=== PATIENT | female | born 1965 | race Caucasian/White ===

== ENCOUNTER 2019-11-26 21:55 | Inpatient (IN) | payer MEDICAID, OTHER ==
[~2019-11-26] VITALS: Ht 175.3 cm; Wt 95.5 kg
[2019-11-26] MEDS ORDERED: ondansetron/PF 4mg/2ml inj IV ONE (22:25)
[2019-11-26] MEDS ORDERED: morphine 4 MG/ML inj SYRINge IV ONE (22:25)
[2019-11-26] MEDS ORDERED: normal saline 1000ML IV soln IVB ONE (22:25)
[2019-11-26] MEDS ORDERED: iohexol 350MG/ML 100ml bottle IV ONE (22:27)
[2019-11-26 22:30] LABS: ALBUMIN 3.1 G/DL (3.4-5.0); ALBUMIN/GLOBULIN RATIO 0.8 (1.1-1.5); ALKALINE PHOSPHATASE 95 IU/L (46-116); ANION GAP 14 (8-16); BILIRUBIN,TOTAL 3.4 MG/DL (0.1-1.0); BLOOD UREA NITROGEN 10 MG/DL (7-18); BUN/CREATININE RATIO 11.8 (6.6-38.0); CALCIUM 6.8 MG/DL (8.5-10.1); CHLORIDE 94 MMOL/L (99-107); CREATININE 0.85 MG/DL (0.40-0.90); GLUCOSE 193 MG/DL (70-104); POTASSIUM 3.9 MMOL/L (3.5-5.1); SODIUM 126 MMOL/L (135-145); TOTAL CARBON DIOXIDE 17.6 MMOL/L (24-32); TOTAL PROTEIN 6.8 G/DL (6.4-8.2); eGFR 69 ML/MIN
[2019-11-26 22:40] LABS: BASOPHILS # (AUTO) 0.1 X10'3 (0-0.2); BASOPHILS % (AUTO) 1.1 % (0-1); EOSINOPHILS % (AUTO) 0 % (0-6); LYMPHOCYTES # (AUTO) 2.4 X10'3 (1.1-4.8); LYMPHOCYTES % (AUTO) 19.3 % (21-51); MEAN CORPUSCULAR HEMOGLOBIN 33.7 PG (27.0-31.0); MEAN CORPUSCULAR HGB CONC 34.1 g/dL (33.0-36.5); MEAN PLATELET VOLUME 8.2 FL (7.4-10.4); MONOCYTES # (AUTO) 0.5 X10'3 (0-0.9); MONOCYTES % (AUTO) 3.8 % (2-12); NEUTROPHILS # (AUTO) 9.3 X10'3 (1.8-7.7); NEUTROPHILS % (AUTO) 75.8 % (42-75); PLATELET COUNT 241 X10'3 (140-440); RED BLOOD COUNT 4.44 X10'6 (4.20-5.60); RED CELL DISTRIBUTION WIDTH 13.9 % (11.5-14.5); WHITE BLOOD COUNT 12.3 X10'3 (4.5-11.0)
[2019-11-26 22:59] LABS: ALANINE AMINOTRANSFERASE 99 U/L (12-78); ASPARTATE AMINO TRANSFERASE 230 U/L (10-37)
[2019-11-26 23:17] LABS: LIPASE 9937 U/L (73-393)
[2019-11-26] MEDS ORDERED: fentaNYL/PF 50MCG/1 ML 2ML syringe IV ONE (23:30)
[2019-11-26] MEDS ORDERED: ACET-3068 PO (23:32)
[2019-11-26] MEDS ORDERED: LISI-600 PO (23:32)
[2019-11-26] MEDS ORDERED: NORE-99 PO (23:33)
[2019-11-26] MEDS ORDERED: OMEP40CA13 PO (23:33)
[2019-11-26] MEDS ORDERED: NAS0.025NS BOTHNARES (23:34)
[2019-11-26] MEDS ORDERED: LORA10TA61 PO (23:34)
[2019-11-26 23:47] LABS: URINE HCG NEGATIVE (NEG)
[2019-11-26 23:58] LABS: CLARITY,URINE CLEAR (Clear); COLOR,URINE YELLOW (Yellow); GLUCOSE, URINE NEGATIVE (Neg); KETONES,URINE NEGATIVE (Neg); LEUKOCYTE ESTERASE ,URINE NEGATIVE (Neg); NITRITES, URINE NEGATIVE (Neg); OCCULT BLOOD,URINE TRACE-LYSED (Neg); PROTEIN,URINE NEGATIVE (Neg); UROBILINOGEN,URINE 0.2 E.U/dL (0.2-1.0)
[2019-11-27 00:07] LABS: CHOL/HDL RATIO 22.6 (0.00-4.99); CHOLESTEROL 701 MG/DL (0-200); HDL CHOLESTEROL 31 MG/DL (35-60); LDL CHOLESTEROL 145 MG/DL (50-100); TRIGLYCERIDES 3332 MG/DL (20-135)
[2019-11-27 00:08] LABS: UA COLLECTION TYPE CLN CATCH MIDSTREAM
[2019-11-27 00:21] LABS: BACTERIA,URINE FEW /HPF (Neg); MUCUS STRANDS FEW /LPF (Neg); RBC,URINE 0-2 /HPF (0-2); SQUAMOUS EPITHELIAL CELL,UR MANY /LPF (FEW); WBC,URINE 0-4 /HPF (0-4)
[2019-11-27 00:50] LABS: ETHANOL < 0.010 GM/DL (0.0-0.010)
[2019-11-27] MEDS ORDERED: normal saline 1000ml 1,000 ML IV SCH (01:12)
[2019-11-27] MEDS ORDERED: morphine 2 MG/ML inj. syringe IV PRN (01:15)
[2019-11-27] MEDS ORDERED: LORazepam 1 MG tablet PO PRN (01:15)
[2019-11-27] MEDS ORDERED: potassium Cl 20 mEq SR tablet PO PRN (01:15)
[2019-11-27] MEDS ORDERED: magnesium 2GM in 50ml NS 50 ML IV PRN (01:15)
[2019-11-27] MEDS ORDERED: magnesium 4gm in 100ml NS 100 ML IV PRN (01:15)
[2019-11-27] MEDS ORDERED: magnesium Cl slow-release 64mg tablet PO PRN (01:15)
[2019-11-27] MEDS ORDERED: potassium CL 10mEq/100ml bag 100 ML IV PRN ×2 (01:15)
[2019-11-27] MEDS ORDERED: dicyclomine 10 MG capsule PO PRN (01:15)
[2019-11-27] MEDS ORDERED: mag hydrox/Alum hydrox/simeth 30ml oral suspension PO PRN (01:15)
[2019-11-27] MEDS ORDERED: LORazepam 2 mg/ml vial IV PRN (01:15)
[2019-11-27] MEDS ORDERED: acetaminophen 325mg tablet PO PRN ×2 (01:15)
[2019-11-27] MEDS ORDERED: ondansetron/PF 4mg/2ml inj IV PRN (01:15)
[2019-11-27] MEDS: HYDROcodone/acetaminophen 10/325mg tab PO PRN ×3 (01:41→20:25)
[2019-11-27] MEDS: atenolol 50mg tablet PO SCH ×2 (01:41→08:00)
--- NOTE | 2019-11-27 01:50 | NUR ---
Received report from ER nurse will assume patient care.
[2019-11-27 02:10] VITALS: BP 114/59
--- NOTE | 2019-11-27 02:10 | NUR ---
Patient arrived to floor. VSS. Oriented patient to room. Call light in reach.
--- NOTE | 2019-11-27 06:57 | NUR ---
Patient in room NADIRA 345. I have received report from Jessika TAN and had the opportunity to ask questions and assume patient care.
[2019-11-27 07:58] VITALS: BP 112/68
[2019-11-27 08:00] VITALS: BP 112/68
[2019-11-27] MEDS: K and/or MAG REPLACEMENT MC SCH ×2 (08:00→19:51)
[2019-11-27] MEDS: loratadine 10mg tablet PO SCH (08:08)
[2019-11-27] MEDS: pantoprazole 40 MG vial IV SCH (08:09)
[2019-11-27] MEDS: lisinopril 10 MG tablet PO SCH (08:09)
[2019-11-27] MEDS: heparin, porcine 5000 units/ml vial SQ SCH ×2 (08:10→20:26)
[2019-11-27] MEDS ORDERED: fenofibrate 145mg tablet PO SCH (09:45)
[2019-11-27 11:00] VITALS: BP 125/46
[2019-11-27] MEDS: dextrose 5%-normal saline 1,000 ML IV SCH ×2 (11:34→20:26)
[2019-11-27] MEDS: atorvastatin 20mg tablet PO SCH (11:38)
[2019-11-27] MEDS: morphine 2 MG/ML inj. syringe IV PRN (11:38)
[2019-11-27] MEDS: fenofibrate 145mg tablet PO SCH (11:53)
[2019-11-27] MEDS: omega-3 acid ethyl esters 1GM capsule PO SCH ×2 (11:55→20:25)
[2019-11-27 19:43] VITALS: BP 118/40
[2019-11-27] MEDS ORDERED: temazepam 15mg capsule PO PRN (21:00)
[2019-11-27 23:40] VITALS: BP 104/51
[2019-11-28 05:04] LABS: BASOPHILS % (AUTO) 0.3 % (0-1); EOSINOPHILS # (AUTO) 0.1 X10'3 (0-0.9); EOSINOPHILS % (AUTO) 0.6 % (0-6); HEMATOCRIT 34.1 % (35.0-45.0); HEMOGLOBIN 11.5 g/dl (12.0-16.0); LYMPHOCYTES # (AUTO) 1.3 X10'3 (1.1-4.8); LYMPHOCYTES % (AUTO) 14.7 % (21-51); MEAN CORPUSCULAR HEMOGLOBIN 33.3 PG (27.0-31.0); MEAN CORPUSCULAR HGB CONC 33.9 g/dL (33.0-36.5); MEAN CORPUSCULAR VOLUME 98.3 FL (78-98); MEAN PLATELET VOLUME 8.3 FL (7.4-10.4); MONOCYTES # (AUTO) 0.6 X10'3 (0-0.9); MONOCYTES % (AUTO) 6.1 % (2-12); NEUTROPHILS # (AUTO) 7.1 X10'3 (1.8-7.7); NEUTROPHILS % (AUTO) 78.3 % (42-75); PLATELET COUNT 133 X10'3 (140-440); RED BLOOD COUNT 3.46 X10'6 (4.20-5.60); RED CELL DISTRIBUTION WIDTH 13.7 % (11.5-14.5)
[2019-11-28 05:21] LABS: ALANINE AMINOTRANSFERASE 49 U/L (12-78); ALBUMIN 2.4 G/DL (3.4-5.0); ALBUMIN/GLOBULIN RATIO 0.8 (1.1-1.5); ALKALINE PHOSPHATASE 59 IU/L (46-116); ANION GAP 8 (8-16); ASPARTATE AMINO TRANSFERASE 84 U/L (10-37); BILIRUBIN,TOTAL 1.1 MG/DL (0.1-1.0); BLOOD UREA NITROGEN 7 MG/DL (7-18); BUN/CREATININE RATIO 10.3 (6.6-38.0); CALCIUM 6.8 MG/DL (8.5-10.1); CHLORIDE 105 MMOL/L (99-107); CREATININE 0.68 MG/DL (0.40-0.90); GLUCOSE 130 MG/DL (70-104); MAGNESIUM 1.5 MG/DL (1.5-2.4); SODIUM 137 MMOL/L (135-145); TOTAL CARBON DIOXIDE 24.3 MMOL/L (24-32); TOTAL PROTEIN 5.4 G/DL (6.4-8.2); eGFR 90 ML/MIN
[2019-11-28 05:22] LABS: LIPASE 1977 U/L (73-393)
[2019-11-28] MEDS: morphine 2 MG/ML inj. syringe IV PRN ×3 (05:24→20:55)
--- NOTE | 2019-11-28 06:45 | NUR ---
Problems reprioritized. Patient report given, questions answered & plan of care reviewed with Smitha RN.
[2019-11-28 07:00] VITALS: BP 117/60
[2019-11-28] MEDS: atenolol 50mg tablet PO SCH (08:00)
[2019-11-28] MEDS: K and/or MAG REPLACEMENT MC SCH ×2 (08:00→20:00)
[2019-11-28] MEDS: fenofibrate 145mg tablet PO SCH (08:24)
[2019-11-28] MEDS: atorvastatin 20mg tablet PO SCH (08:24)
[2019-11-28] MEDS: omega-3 acid ethyl esters 1GM capsule PO SCH ×2 (08:25→20:44)
[2019-11-28] MEDS: pantoprazole 40 MG vial IV SCH (08:25)
[2019-11-28] MEDS: lisinopril 10 MG tablet PO SCH (08:25)
[2019-11-28] MEDS: loratadine 10mg tablet PO SCH (08:25)
[2019-11-28] MEDS: heparin, porcine 5000 units/ml vial SQ SCH ×2 (08:26→20:44)
[2019-11-28] MEDS: potassium Cl 20 mEq SR tablet PO PRN ×3 (10:25→20:45)
[2019-11-28 11:00] VITALS: BP 108/56
[2019-11-28] MEDS: HYDROcodone/acetaminophen 10/325mg tab PO PRN ×2 (13:16→17:37)
[2019-11-28] MEDS: dextrose 5%-normal saline 1,000 ML IV SCH (17:37)
--- NOTE | 2019-11-28 19:03 | NUR ---
Problems reprioritized. Patient report given, questions answered & plan of care reviewed with DOMINICK Renteria.
[2019-11-28 20:00] VITALS: BP 105/56
--- NOTE | 2019-11-28 21:45 | NUR ---
Received report from Dexter TAN. Pt was sitting up in bed talking on the phone with no signs of distress. D5NS running at 75 mls/hr. Will continue to monitor.
[2019-11-29 00:29] VITALS: BP 105/46
[2019-11-29] MEDS: dextrose 5%-normal saline 1,000 ML IV SCH ×2 (01:50→07:49)
[2019-11-29] MEDS: morphine 2 MG/ML inj. syringe IV PRN (03:00)
[2019-11-29 04:48] LABS: BASOPHILS # (AUTO) 0.2 X10'3 (0-0.2); BASOPHILS % (AUTO) 1.9 % (0-1); EOSINOPHILS # (AUTO) 0.1 X10'3 (0-0.9); EOSINOPHILS % (AUTO) 0.8 % (0-6); HEMATOCRIT 33.7 % (35.0-45.0); HEMOGLOBIN 11.4 g/dl (12.0-16.0); LYMPHOCYTES # (AUTO) 1.1 X10'3 (1.1-4.8); LYMPHOCYTES % (AUTO) 13.4 % (21-51); MEAN CORPUSCULAR HEMOGLOBIN 33.8 PG (27.0-31.0); MEAN CORPUSCULAR HGB CONC 33.9 g/dL (33.0-36.5); MEAN CORPUSCULAR VOLUME 99.5 FL (78-98); MEAN PLATELET VOLUME 8.2 FL (7.4-10.4); MONOCYTES # (AUTO) 0.6 X10'3 (0-0.9); MONOCYTES % (AUTO) 7.7 % (2-12); NEUTROPHILS # (AUTO) 6.3 X10'3 (1.8-7.7); NEUTROPHILS % (AUTO) 76.2 % (42-75); PLATELET COUNT 126 X10'3 (140-440); RED BLOOD COUNT 3.39 X10'6 (4.20-5.60); WHITE BLOOD COUNT 8.2 X10'3 (4.5-11.0)
[2019-11-29 05:04] LABS: ALANINE AMINOTRANSFERASE 43 U/L (12-78); ALBUMIN 2.4 G/DL (3.4-5.0); ALBUMIN/GLOBULIN RATIO 0.7 (1.1-1.5); ALKALINE PHOSPHATASE 67 IU/L (46-116); ANION GAP 7 (8-16); ASPARTATE AMINO TRANSFERASE 80 U/L (10-37); BILIRUBIN,TOTAL 1.2 MG/DL (0.1-1.0); BLOOD UREA NITROGEN 3 MG/DL (7-18); BUN/CREATININE RATIO 5.8 (6.6-38.0); CALCIUM 7.6 MG/DL (8.5-10.1); CHLORIDE 107 MMOL/L (99-107); CREATININE 0.52 MG/DL (0.40-0.90); GLUCOSE 113 MG/DL (70-104); LIPASE 1318 U/L (73-393); MAGNESIUM 1.5 MG/DL (1.5-2.4); POTASSIUM 3.5 MMOL/L (3.5-5.1); SODIUM 139 MMOL/L (135-145); TOTAL CARBON DIOXIDE 25.2 MMOL/L (24-32); TOTAL PROTEIN 5.7 G/DL (6.4-8.2); eGFR > 90 ML/MIN
--- NOTE | 2019-11-29 06:34 | NUR ---
Problems reprioritized. Patient report given, questions answered & plan of care reviewed with Brook TAN.
--- NOTE | 2019-11-29 06:48 | NUR ---
Patient in room NADIRA 345. I have received report from Batsheva TAN and had the opportunity to ask questions and assume patient care.
[2019-11-29 07:00] VITALS: BP 128/67
[2019-11-29] MEDS: omega-3 acid ethyl esters 1GM capsule PO SCH (07:51)
[2019-11-29] MEDS: fenofibrate 145mg tablet PO SCH (07:51)
[2019-11-29] MEDS: HYDROcodone/acetaminophen 5mg/325mg tablet PO PRN ×2 (07:52→12:25)
[2019-11-29] MEDS: loratadine 10mg tablet PO SCH (07:52)
[2019-11-29] MEDS: lisinopril 10 MG tablet PO SCH (07:53)
[2019-11-29] MEDS: atorvastatin 20mg tablet PO SCH (07:53)
[2019-11-29] MEDS: pantoprazole 40 MG vial IV SCH (07:54)
[2019-11-29] MEDS: K and/or MAG REPLACEMENT MC SCH (07:54)
[2019-11-29] MEDS: heparin, porcine 5000 units/ml vial SQ SCH (07:54)
[2019-11-29] MEDS: atenolol 50mg tablet PO SCH (07:58)
[2019-11-29 11:03] LABS: TRIGLYCERIDES 436 MG/DL (20-135)
[2019-11-29 12:14] VITALS: BP 137/57
--- NOTE | 2019-11-29 14:47 | NUR ---
Full Liquid diet ordered, fax to request late tray sent approx 1230, phone call to Dietary at 1300-no answer. senior network engineer notified. Phone call to kitchen at 1400 answered-to send Full liquid tray. PCT down to obtain tray at 1445.
[2019-11-29] MEDS ORDERED: OMEG1CAP PO (15:22)
[2019-11-29] MEDS ORDERED: FENO145T25 PO (15:22)
[2019-11-29] MEDS ORDERED: ATEN50TA41 PO (15:22)
[2019-11-29] MEDS ORDERED: ATOR20TA66 PO (15:22)
--- NOTE | 2019-11-29 17:38 | NUR ---
Pt stable and appropriate for discharge. PIV d/c'd cannula intact. Reviewed with patient all d/c instructions and meds. Pt to call and schedule f/u appt with PCP for 2-3 days. pt to call PCP with any questions or concerns, or return to nearest ER with worsening symptoms or s/sx of complications. Escorted down to front lobby by staff member via w/c with all personal belongings. D/C'd home in private vehicle driven by family member.
== END 2019-11-29 17:40 | disposition home or self-care (01) | DRG 282 ==
LOC: ER 21:57 → ED HOLD 11-27 01:12 → SUR 3N 11-27 02:17
PROVIDERS: ADMIT Internal Medicine; ATTEND Family Medicine
DX: K85.20 Alcohol induced acute pancreatitis without necrosis or infection (principal); E87.1 Hypo-osmolality and hyponatremia; K29.80 Duodenitis without bleeding; G89.29 Other chronic pain; E78.5 Hyperlipidemia, unspecified; E78.1 Pure hyperglyceridemia; I10 Essential (primary) hypertension; K76.0 Fatty (change of) liver, not elsewhere classified; M26.629 Arthralgia of temporomandibular joint, unspecified side; Z87.891 Personal history of nicotine dependence; Z79.899 Other long term (current) drug therapy
CPT/HCPCS: 36415; 71275; 74174; 76700; 80053; 80061; 80320; 81001; 81003; 81025; 82948; 83036; 83605; 83690; 83735; 84478; 85025; 87040; 87081; 93005; 96361; 96374; 96375; 97161; 97530; 99285; C9113; G0378; J1644; J2270; J2405; J3010; J7030; J7042; Q9967

== ENCOUNTER 2021-01-24 05:33 | Day surgery (SDC) | payer MEDICAID ==
[~2021-01-24] VITALS: Ht 175.3 cm; Wt 94.3 kg
[~2021-01-24 05:33] MED LIST: ACET-3068 PO; ALPH600C3 PO; AZEL205. BOTHNARES; CALCIUM PO; D3 PO; FENO54TA PO; LISI20TA28 PO; LORA10TA61 PO; MAGN250T11 PO; NORE-99 PO; VITA-268 PO; cefazolin/dext.iso 2gm/50ml 50 ML IV ONE; famotidine 20mg tablet PO ONE; ringers solution, lacted 1,000 ML IV SCH
[2021-01-24 06:44] LABS: BASOPHILS # (AUTO) 0.1 X10'3 (0-0.2); BASOPHILS % (AUTO) 1.1 % (0-1); EOSINOPHILS # (AUTO) 0.1 X10'3 (0-0.9); EOSINOPHILS % (AUTO) 1.7 % (0-6); LYMPHOCYTES # (AUTO) 1.8 X10'3 (1.1-4.8); LYMPHOCYTES % (AUTO) 27.6 % (21-51); MEAN CORPUSCULAR HEMOGLOBIN 32.5 PG (27.0-31.0); MEAN CORPUSCULAR HGB CONC 33.3 g/dL (33.0-36.5); MEAN CORPUSCULAR VOLUME 97.5 FL (78-98); MONOCYTES # (AUTO) 0.6 X10'3 (0-0.9); MONOCYTES % (AUTO) 9.2 % (2-12); NEUTROPHILS % (AUTO) 60.4 % (42-75); PRE OP HEMATOCRIT 39.8 % (35.0-45.0); PRE OP HEMOGLOBIN 13.3 g/dL (12.0-16.0); PRE OP PLATELET COUNT 237 X10'3 (140-440); RED BLOOD COUNT 4.08 X10'6 (4.20-5.60); RED CELL DISTRIBUTION WIDTH 12.8 % (11.5-14.5)
[2021-01-24] MEDS ORDERED: bacitracin 15gm ointment TP ONE (06:47)
[2021-01-24] MEDS ORDERED: BUPIVAcaine/PF 2.5 mg/ml (0.25%) 30ml vial ONE (06:47)
[2021-01-24] MEDS ORDERED: mupirocin 2% ointment 22GM ONE (06:47)
[2021-01-24] MEDS ORDERED: sevoflurane 250ml liquid IH ONE (07:05)
[2021-01-24] MEDS ORDERED: morphine 2 MG/ML inj. syringe IV PRN (07:10)
[2021-01-24] MEDS ORDERED: morphine 4 MG/ML inj SYRINge IV PRN (07:10)
[2021-01-24] MEDS ORDERED: labetalol 20mg/4ml (5mg/ml) syringe IV PRN (07:10)
[2021-01-24] MEDS ORDERED: hydrALAZINE 20mg/ml inj. IV PRN (07:10)
[2021-01-24] MEDS ORDERED: meperidine/PF 25mg/ml syringe IV PRN ×3 (07:10)
[2021-01-24] MEDS ORDERED: acetaminophen 1,000mg/100ml IV 100 ML IV PRN (07:10)
[2021-01-24] MEDS ORDERED: ondansetron/PF 4mg/2ml inj IV PRN (07:10)
[2021-01-24] MEDS ORDERED: proCHLORperazine 10 MG/2 ml inj IV PRN (07:10)
[2021-01-24] MEDS ORDERED: ringers solution, lacted 1,000 ML IV SCH (07:10)
[2021-01-24] MEDS ORDERED: fentaNYL/PF 50MCG/1 ML 2ML syringe ONE (07:12)
[2021-01-24] MEDS ORDERED: midazolam 1 mg/ML 2ml injection ONE (07:12)
[2021-01-24 07:15] LABS: ALANINE AMINOTRANSFERASE 98 U/L (12-78); ALBUMIN 3.6 G/DL (3.4-5.0); ALBUMIN/GLOBULIN RATIO 1.1 (1.1-1.5); ALKALINE PHOSPHATASE 40 IU/L (46-116); ANION GAP 11 (8-16); ASPARTATE AMINO TRANSFERASE 66 U/L (10-37); BILIRUBIN,TOTAL 0.8 MG/DL (0.1-1.0); BLOOD UREA NITROGEN 13 MG/DL (7-18); BUN/CREATININE RATIO 21.3 (6.6-38.0); CALCIUM 8.3 MG/DL (8.5-10.1); CHLORIDE 107 MMOL/L (99-107); CREATININE 0.61 MG/DL (0.40-0.90); GLUCOSE 101 MG/DL (70-104); SODIUM 143 MMOL/L (135-145); TOTAL CARBON DIOXIDE 24.8 MMOL/L (24-32); TOTAL PROTEIN 6.8 G/DL (6.4-8.2); eGFR > 90 ML/MIN
[2021-01-24] MEDS ORDERED: dexamethasone sod phosphate 4mg/ml inj. ONE (07:38)
[2021-01-24] MEDS ORDERED: propofol inj 20 ML IV ONE ×2 (07:38)
[2021-01-24] MEDS ORDERED: ondansetron/PF 4mg/2ml inj ONE (07:38)
[2021-01-24] MEDS ORDERED: LIDOcaine 2% (20mg/ml) 5ml vial ONE (07:38)
[2021-01-24] MEDS ORDERED: ketorolac trometh. 30mg/ml inj. ONE (07:53)
[2021-01-24 08:02] VITALS: BP 135/79
--- NOTE | 2021-01-24 08:02 | NUR ---
Received from OR via JD , accompanied by Anesthesiologist EDWINA and report given by Anesthesiolgist. PATIENT WITH 20G PIV IN RIGHT UE RUNNING LR AT 100. DENIES PAIN AT THIS TIME. LEFT LE IS IN BOOT THAT IS CDI. NO DRAINAGE PRESENT TO DRESSINGS. Addendum: 01/24/21 at 0809 by Harjinder Thorpe RN, RN Amended: Links added.
[2021-01-24 08:10] VITALS: BP 124/72
[2021-01-24 08:11] VITALS: BP 137/93
[2021-01-24 08:14] VITALS: BP 137/93
[2021-01-24 08:17] VITALS: BP 137/93
[2021-01-24 08:20] VITALS: BP 128/67
--- NOTE | 2021-01-24 08:32 | NUR ---
Transferred via WHEELCHAIR WITH [employer]ong[employer]- Special Issues communicated to SPOUSE. VSS. DRESSING TO LEFT LEFT FOOT IS CDI.ALINE. STATES SHE FEELS LIKE SHE CAN GO HOME. ALL DC CRITERIA HAS BEEN MET. Addendum: 01/24/21 at 0836 by Harjinder Thorpe RN, RN Amended: Links added.
== END 2021-01-24 08:32 | disposition home or self-care (01) ==
LOC: PAS 05:33
PROVIDERS: ATTEND Podiatrist Foot & Ankle Surgery
DX: M79.89 Other specified soft tissue disorders (principal); M67.472 Ganglion, left ankle and foot; I10 Essential (primary) hypertension; E66.9 Obesity, unspecified; Z68.28 Body mass index [BMI] 28.0-28.9, adult; Z79.899 Other long term (current) drug therapy; Z20.822 Contact with and (suspected) exposure to COVID-19; Z98.890 Other specified postprocedural states; Z87.891 Personal history of nicotine dependence; Z72.89 Other problems related to lifestyle
CPT/HCPCS: 28041; 36415; 80053; 82948; 85025; 93005; A6222; J1100; J1885; J2001; J2250; J2405; J2704; J3010; J3490; U0003; U0005; Z7506; Z7512; A4215; A4618; A6449; A7000; J7120

== ENCOUNTER → 2023-08-10 | Outpatient (CLI) | payer MEDICAID ==
[~2023-08-10] MED LIST changes: -cefazolin/dext.iso 2gm/50ml 50 ML IV ONE; -famotidine 20mg tablet PO ONE; -ringers solution, lacted 1,000 ML IV SCH
== END | disposition home or self-care (01) ==
LOC: RAD 09:00
PROVIDERS: ATTEND Physician Assistant
DX: D25.9 Leiomyoma of uterus, unspecified (principal); N85.2 Hypertrophy of uterus
CPT/HCPCS: 76830; 76856; 93976

== ENCOUNTER 2023-10-04 16:51 | Emergency (ER) | payer MEDICAID ==
[~2023-10-04] VITALS: Ht 175.3 cm; Wt 86.3 kg
[2023-10-04 17:05] VITALS: TEMP 98.9
[2023-10-04 18:15] VITALS: BP 129/66; PULSE 101; RESP 18; O2SAT 98
== END 2023-10-04 18:18 | disposition home or self-care (01) ==
LOC: EEVIPCON 16:52 → ER 16:52
DX: S09.90XA Unspecified injury of head, initial encounter (principal); I10 Essential (primary) hypertension; F10.129 Alcohol abuse with intoxication, unspecified; Z79.899 Other long term (current) drug therapy; Y90.9 Presence of alcohol in blood, level not specified; W19.XXXA Unspecified fall, initial encounter; Y93.89 Activity, other specified; Y92.89 Other specified places as the place of occurrence of the external cause; Y99.8 Other external cause status
CPT/HCPCS: 99283